=== PATIENT | female | born 1955 | race Caucasian/White ===

== ENCOUNTER 2019-09-29 07:35 | Day surgery (SDC) | payer OTHER ==
--- NOTE | 2019-09-28 11:21 | RAD REPORT ---
EXAM DESCRIPTION: RAD - Chest Pa And Lat (2 Views) - 09/28/2019 11:12 am CLINICAL HISTORY: preop Chest pain. COMPARISON: Chest Pa And Lat (2 Views) dated 01/26/2019; Chest Pa And Lat (2 Views) dated 03/24/2016; C HEST SINGLE VIEW dated 07/25/2012 FINDINGS: The lungs are clear. The heart is upper limit of normal in size. No displaced fractures. IMPRESSION: No acute or concerning finding suspected.
[2019-09-28 12:00] LABS: Absolute Lymphocytes (CBC) 2.7 K/uL (0.7-4.9); Basophils % 0.7 % (0-1.3); Hematocrit 39.7 % (36.0-45.0); Lymphocytes % 31.4 % (15.3-44.8); MPV 10.3 fL (7.6-11.3)
[2019-09-28 12:14] LABS: Protime INR 1.01
[2019-09-28 12:17] LABS: BUN Blood Urea Nitrogen 13 mg/dL (7-18); Bicarbonate 29 mmol/L (21-32); Glucose Level 115 mg/dL (74-106); Potassium 3.9 mmol/L (3.5-5.1); Sodium Level 143 mmol/L (136-145)
--- NOTE | 2019-09-28 14:32 | EKG ---
Test Date: 2019-09-28 Test Time: 11:40:07 Living Manager: ORQUIDEA MEASUREMENT RESULTS: Intervals: Rate: 70 WV: 180 QRSD: 78 QT: 416 QTc: 449 Alligator: P: 54 WV: 180 QRS: 57 T: 51 INTERPRETIVE STATEMENTS: Normal sinus rhythm Nonspecific T wave abnormality Abnormal ECG Compared to ECG 07/25/2012 16:43:27 T-wave abnormality now present Electronically Signed On 09-28-19 14:31:39 EDISCOVERY PROJECT MANAGER by Bhanu Kelley
[2019-09-29] MEDS ORDERED: NA CHLORIDE 0.9% 500 ML ONE (07:41)
[2019-09-29] MEDS ORDERED: HEPA 1000U/500MLS 1,000 UNIT/500 ML BAG IV ONE (08:18)
[2019-09-29] MEDS ORDERED: MIDAZOLAM HCL 2 MG/2 ML INJ ONE ×2 (08:39→09:12)
[2019-09-29] MEDS ORDERED: ATROPINE SULF 1 MG/10 ML SYR IV ONE (08:39)
[2019-09-29] MEDS ORDERED: FENTANYL CITR 100 MCG/2 ML ONE (08:39)
[2019-09-29] MEDS ORDERED: NA CHLORIDE 0.9% 0 ML ONE (08:40)
[2019-09-29] MEDS ORDERED: ONDANSETRON 4 MG/2 ML VIAL ONE (08:47)
[2019-09-29] MEDS ORDERED: METHYLPREDNISOLONE 125 MG INJ ONE (08:47)
[2019-09-29 11:31] VITALS: BP 163/78; TEMP 97.6; O2SAT 94
--- NOTE | 2019-09-29 20:31 | OP ---
Surgeon: Khanh Taylor MD Liturgical Music Director: Ms. Badillo. The patient is 64, has diabetes, dyslipidemia, hypertension, unstable angina. Admitted as an outpati ent for heart catheterization today. Procedures: Left heart catheterization, selective coronary arteriogram, and LV-gram. The patient young d received 2 doses of prednisone 60 mg p.o. the night before and the morning of, and she also receive d 100 mg Solu-Medrol IV prior to the procedure because of iodine allergy. She received Versed and fe ntanyl for IV sedation. Prepped and draped in the routine sterile fashion. Six-Greek access sheath in the right common femoral artery, successful angiogram there was normal. Angio-Seal was used to c lose the case. Antonieta catheters 6-Greek left main and right main injected respectively with a JL4 and JR4 without any complication. She had normal coronaries. She was right dominant. A JR4 was use d to do an LV-gram. She had a normal ejection fraction, end-diastolic pressure and wall motion. The re were no complications. Blood Loss: 5 mL. Total conscious sedation was 30 minutes. Postoperative Diagnosis: Chest pain, normal coronaries. Plan: Medical therapy. RIKKI/LEONOR Voice ID: [id number] Report ID: [id number]
== END 2019-09-29 11:25 | disposition home or self-care (01) ==
LOC: CCL 07:35
DX: R07.9 Chest pain, unspecified (principal); I10 Essential (primary) hypertension; E78.5 Hyperlipidemia, unspecified; E11.9 Type 2 diabetes mellitus without complications; J45.909 Unspecified asthma, uncomplicated; F41.9 Anxiety disorder, unspecified; R60.9 Edema, unspecified; Z91.013 Allergy to seafood; Z88.6 Allergy status to analgesic agent; Z88.3 Allergy status to other anti-infective agents
CPT/HCPCS: 93005; 85025; 80048; 36415; 85610; 82947 ×2; 85730; 71046; 93458; C1893; C1760; J2250 ×2; J3010; J7040; J2930; J0583; J2405

== ENCOUNTER 2023-07-06 12:05 | Emergency (ER) | payer OTHER, SELFPAY ==
--- OUTSIDE RECORDS SUMMARY | 2023-07-06 12:09 | XMS REPORT | Continuity of Care Document ---
:1955 [facility] t Address [address] [place] [address] Care Team Providers Name Role Phone Luis E Puri Attending Clinician Problems Condition Condition Condition Status Onset Resolution Last Treating Co mments Source Name Details Category Date Date Treatment Clinician Date S/P LT S/P LT Diagnosis Active 2016-12-24 Me moria HAND FX HAND FX 14:46:00 l Active [facility] Allergies, Adverse Reactions, Alerts This patient has no known allergies or adverse reactions. Medications This patient has no known medications. Procedures This patient has no known procedures. Encounters Start End Encounter Admission Attending Care Care Encounter Source Date/Time Date/Time Type Type Clinicians Facility Department ID 2023-04-05 2023-04-05 Outpatient [facility] [id number] Addy 07:22:40 07:22:40 [id number] F Zain 2023-03-22 2023-03-22 Outpatient [facility] [id number] Addy 07:31:14 07:31:14 [id number] F Zain 2016-12-24 2017-01-23 OP Therapy nullFlavo [facility] [id number] Memoria 19:24:00 05:59:00 Patients r Navdeep 00 l Roland Chisholm 2016-12-24 2017-01-22 Outpatient [facility], [id number] 13:24:00 23:59:00 Luis E Jane [id number] 5.51 2016-12-24 2017-01-22 Outpatient [facility], [id number] 13:24:00 23:59:00 Luis E Jane [id number] 5.51 Results This patient has no known results.
[2023-07-06 12:50] LABS: Absolute Lymphocytes (CBC) 1.2 K/uL (0.7-4.9); Hematocrit 38.6 % (36.0-45.0); Lymphocytes % 15.2 % (15.3-44.8); MCV 90.2 fL (80-100); MPV 9.2 fL (7.6-11.3); Platelets 135 thou/uL (152-406); RBC Red Blood Cell Count 4.29 M/uL (3.86-4.86)
[2023-07-06 13:10] LABS: Albumin 2.9 g/dL (3.4-5.0); Bilirubin Direct 0.3 mg/dL (0-0.2); Bilirubin Indirect, Calculated 0.7 mg/dL (0.2-0.8); Magnesium 2.1 mg/dL (1.6-2.4); Potassium 3.4 mEq/L (3.5-5.1); Protein, Total 6.7 g/dL (6.4-8.2)
[2023-07-06 13:17] LABS: Troponin High Sensitivity 166.1 pg/mL (<58.9)
--- NOTE | 2023-07-06 13:34 | RAD REPORT ---
EXAM DESCRIPTION: RADChest Single View07/06/2023 1:05 pm CLINICAL HISTORY: DYSPNEA COMPARISON: Chest Pa And Lat (2 Views) dated 09/28/2019; Chest Pa And Lat (2 Views) dated 01/26/2019; C hest Pa And Lat (2 Views) dated 03/24/2016; CHEST SINGLE VIEW dated 07/25/2012 TECHNIQUE: Portable AP view of the chest. FINDINGS: The lungs show no focal consolidation. Central interstitial prominence. Faint left more th an right airspace opacities, could in part relate to superimposition of soft tissues. No pneumothorax or effusion. The cardiomediastinal contours are unremarkable. IMPRESSION: Central interstitial prominence with possible faint bibasilar opacities, findings which may relate to central congestion or early edema.
[2023-07-06] MEDS ORDERED: ASPIRIN 81 MG CHEWABLE TABLET ONE (13:50)
[2023-07-06] MEDS ORDERED: CLOPIDOGREL 75 MG TABLET ONE (13:50)
[2023-07-06] MEDS ORDERED: MORPHINE 2 MG/ML SYR ONE (14:25)
[2023-07-06] MEDS ORDERED: NITROGLYCERIN 1 GM PKT TD ONE (14:25)
[2023-07-06] MEDS ORDERED: DIPHENHYDRAMINE 50 MG/ML VIAL ONE (14:30)
[2023-07-06] MEDS ORDERED: METHYLPREDNISOLONE 125 MG INJ ONE (14:30)
[2023-07-06] MEDS ORDERED: FAMOTIDINE 20 MG/2 ML VIAL IV ONE (14:31)
[2023-07-06] MEDS ORDERED: HEPARIN/D5W 25,000 UNIT/500 ML BAG IV ONE (15:13)
[2023-07-06] MEDS ORDERED: HEPARIN 5000 UNIT/ML 1 ML VIAL ONE (15:13)
--- NOTE | 2023-07-06 15:30 | ER ---
Nurse's Notes [facility] Name: Raven Biggs Age: 68 yrs Sex: Female : 1955 Arrival Date: 07/06/2023 Time: 12:05 Bed 4 Private MD: Diagnosis: Subsequent non-ST elevation (NSTEMI) myocardial infarction Presentation: 07/06 12:06 Chief complaint: Patient's son or daughter states: SOB AND MALAISE x3 DAYS. Coronavirus bp screen: At this time, the client does not indicate any symptoms associated with coronavirus-19. Ebola Screen: No symptoms or risks identified at this time. Initial Sepsis Screen: Does the patient meet any 2 criteria? No. Patient's initial sepsis screen is negative. Does the patient have a suspected source of infection? No. Patient's initial sepsis screen is negative. Risk Assessment: Do you want to hurt yourself or someone else? Patient reports no desire to harm self or others. Onset of symptoms is unknown. Care prior to arrival: IV initiated. 18 GA, in the left antecubital area, Glucose check: 231. 12:06 Method Of Arrival: EMS: [facility] bp 12:06 Acuity: DALE 3 bp Triage Assessment: 12:08 General: Appears uncomfortable, obese, unkempt, Behavior is cooperative, appropriate bp for age, anxious. Pain: Denies pain. EENT: No deficits noted. Neuro: No deficits noted. Cardiovascular: No deficits noted. Respiratory: Reports shortness of breath cough that is Onset: The symptoms/episode began/occurred at an unknown time. the patient has moderate shortness of breath. GI: No signs and/or symptoms were reported involving the gastrointestinal system. : No signs and/or symptoms were reported regarding the genitourinary system. Historical: - Allergies: 12:08 Bactrim; bp 12:08 Codeine; bp 12:08 Fish Containing Products; bp 12:08 Hydrocodone-Acetaminophen; bp 12:08 Iodine; bp 12:08 tramadol; bp - PMHx: 12:08 Diabetes - NIDDM; bp - Immunization history:: Adult Immunizations up to date. - Social history:: Smoking status: Patient denies any tobacco usage or history of. Screenin:11 [facility] ED Fall Risk Assessment (Adult) History of falling in the last 3 months, bp including since admission No falls in past 3 months (0 pts). Abuse screen: Denies threats or abuse. Denies injuries from another. Nutritional screening: No deficits noted. Tuberculosis screening: No symptoms or risk factors identified. Assessment: 12:10 General: SEE TRIAGE NOTE. bp 13:44 Cardiovascular: Rhythm is sinus rhythm. Respiratory: Airway is patent Respiratory bp effort is labored, Breath sounds with wheezes bilaterally. 14:00 Reassessment: AFTER MORPHINE ADMINISTRATION, PT STATES THAT SHE REMEMBERS BEING bp ALLERGIC TO MORPHINE. PT "ALLERGIC REACTION" CONSISTS OF CLENCHING EYES AND NOT SPEAKING, VS REMAIN STABLE AND AIRWAY REMAINS PATENT WITH NO EVIDENCE OF RASH OR EDEMA. NOTIFIED. 15:18 Reassessment: REPORT TO [facility] RN FOR [facility]. 15:34 Reassessment: [facility] AT / FOR TRANSPORT. REPORT TO KANWAL GARCIA AT [facility] bp 6102. Vital Signs: 12:06 BP 152 / 54; Pulse 75; Resp 16; Temp 99; Pulse Ox 82% on R/A; bp 13:44 BP 145 / 58; Pulse 74; Resp 16; Pulse Ox 97% on 2 lpm NC; Weight 102.06 kg; ss 14:38 BP 148 / 72; Pulse 66; Resp 19; Pulse Ox 97% ; jl7 15:34 BP 140 / 70; Pulse 67; Resp 16; Pulse Ox 97% ; bp ED Course: 12:06 Patient arrived in ED. bp 12:08 Triage completed. bp 12:08 Snou Steel MD is Attending Physician. kdr 12:08 Arm band placed on. bp 12:11 Patient has correct armband on for positive identification. Bed in low position. Call bp light in reach. Side rails up X2. 12:11 Maintain EMS IV. Dressing intact. Good blood return noted. Gauge \\T\\ site: 18 GA LEFT AC. bp 12:39 Darell Varner, JOSE is Primary Nurse. bp 13:07 XRAY Chest (1 view) In Process Unspecified. EDMS 13:14 EKG done, by ED staff, reviewed by Sonu Steel MD. jl7 13:30 Notified ED physician of a critical lab result(s). Troponin 166.1. eh3 15:34 No provider procedures requiring assistance completed. Patient transferred, IV remains bp in place. Administered Medications: 13:43 Drug: Aspirin PO Chewable Tablet 324 mg Route: PO; bp 15:29 Follow up: Response: No adverse reaction bp 13:43 Drug: Clopidogrel PO 300 mg Route: PO; bp 15:29 Follow up: Response: No adverse reaction bp 14:00 Drug: Nitroglycerin Transdermal Ointment 2 % 1 inches Route: Transdermal; Site: bp anterior chest wall; 14:00 Drug: morphine IVP or IV 2 mg Route: IVP; Infused Over: 4 mins; Site: left antecubital; bp 15:29 Follow up: Response: No adverse reaction bp 14:15 Drug: MethylPrednisoLONE IVP 125 mg Route: IVP; Site: left antecubital; bp 15:29 Follow up: Response: No adverse reaction bp 14:15 Drug: Famotidine IVP 20 mg Route: IVP; Site: left antecubital; bp 15:30 Follow up: Response: No adverse reaction bp 14:15 Drug: diphenhydrAMINE IVP 25 mg Route: IVP; Site: left antecubital; bp 15:30 Follow up: Response: No adverse reaction bp 15:02 Drug: Heparin (MD-Bolus No thrombolytic) - HEParin IVP 60 units/kg {Co-Signature: jl7 bp (Donald Vega RN).} Route: IVP; Site: left antecubital; 15:40 Follow up: Response: No adverse reaction bp 15:02 Drug: Heparin (MD Drip) - (D5W IV 500 ml, [place] [address] units) 12 units/kg/hr bp {Co-Signature: jl7 (Donald Vega RN).} Route: IV; Rate: calculated rate; Site: left antecubital; 15:40 Follow up: IV Status: Infusion continued upon transfer bp Outcome: 15:29 ER care complete, transfer ordered by . kdr 15:35 Transferred by helicopter to [facility], Transfer form completed. bp 15:35 Condition: stable 15:35 Instructed on the need for transfer. 15:40 Patient left the ED. bp Signatures: Dispatcher [employer] EDMS Sonu Steel MD MD kdr Blanchard, Shelby, RN RN Donald Vega RN RN jl7 Darell Varner RN RN bp Chuyita Dash RN RN 3 Donald Vega RN jl7 Corrections: (The following items were deleted from the chart) 15:01 13:44 BP 145 / 58; Pulse 74bpm; Resp 16bpm; Pulse Ox 97% 2 lpm Nasal Cannula; bp ss
--- NOTE | 2023-07-06 15:30 | EDPHYS ---
Physician Documentation [facility] Name: Raven Biggs Age: 68 yrs Sex: Female : 1955 Arrival Date: 07/06/2023 Time: 12:05 Bed 4 Private MD: ED Physician Sonu Steel HPI: 07/06 16:55 This 68 yrs old Female presents to ER via EMS with complaints of Shortness Of Breath. kdr 16:55 Patient states that she has been short of breath and having chest pressure and kdr heaviness for the last 3 days. The discomfort has steadily progressed. She states that her pain on admission was 9-1/2 out of 10. The patient appears mildly dyspneic but is otherwise not in any acute distress. She is conversing appropriately and without evidence of restriction due to her dyspnea. Patient is certainly appears ill but is not toxic appearing at initial presentation. Onset: The symptoms/episode began/occurred gradually, 3 day(s) ago. Severity of symptoms: At their worst the symptoms were moderate severe incapacitating just prior to arrival, in the emergency department the symptoms have improved mildly. Severity of symptoms: in the emergency department the symptoms After initial round of interventions, the patient stated she was feeling better. She rated her discomfort at a 5 out of 10.. The patient has not experienced similar symptoms in the past. The patient has not recently seen a physician. Historical: - Allergies: 12:08 Bactrim; bp 12:08 Codeine; bp 12:08 Fish Containing Products; bp 12:08 Hydrocodone-Acetaminophen; bp 12:08 Iodine; bp 12:08 tramadol; bp - PMHx: 12:08 Diabetes - NIDDM; bp - Immunization history:: Adult Immunizations up to date. - Social history:: Smoking status: Patient denies any tobacco usage or history of. ROS: 16:55 Constitutional: Negative for fever, chills, and weight loss, Eyes: Negative for injury, kdr pain, redness, and discharge, ENT: Negative for injury, pain, and discharge, Neck: Negative for injury, pain, and swelling, Abdomen/GI: Negative for abdominal pain, nausea, vomiting, diarrhea, and constipation, Back: Negative for injury and pain, : Negative for injury, bleeding, discharge, and swelling, MS/Extremity: Negative for injury and deformity, Skin: Negative for injury, rash, and discoloration, Neuro: Negative for headache, weakness, numbness, tingling, and seizure activity. Psych: Negative for depression, anxiety, suicide ideation, homicidal ideation, and hallucinations, Allergy/Immunology: Negative for hives, rash, and allergies, Endocrine: Negative for neck swelling, polydipsia, polyuria, polyphagia, and marked weight changes, Hematologic/Lymphatic: Negative for swollen nodes, abnormal bleeding, and unusual bruising. 16:55 Cardiovascular: Positive for palpitations, Negative for edema, orthopnea, palpitations, paroxysmal nocturnal dyspnea. 16:55 Respiratory: Positive for dyspnea on exertion, shortness of breath, at rest. Negative for cough, hemoptysis, orthopnea, pleurisy, wheezing. Exam: 16:55 Constitutional: This is a well developed, well nourished patient who is awake, alert, kdr and in no acute distress. Head/Face: Normocephalic, atraumatic. Eyes: Pupils equal round and reactive to light, extra-ocular motions intact. Lids and lashes normal. Conjunctiva and sclera are non-icteric and not injected. Cornea within normal limits. Periorbital areas with no swelling, redness, or edema. Neck: Trachea midline, no thyromegaly or masses palpated, and no cervical lymphadenopathy. Supple, full range of motion without nuchal rigidity, or vertebral point tenderness. No Meningismus. Chest/axilla: Normal chest wall appearance and motion. Nontender with no deformity. No lesions are appreciated. Cardiovascular: Regular rate and rhythm with a normal S1 and S2. No gallops, murmurs, or rubs. Normal PMI, no JVD. No pulse deficits. Respiratory: Lungs have equal breath sounds bilaterally, clear to auscultation and percussion. No rales, rhonchi or wheezes noted. No increased work of breathing, no retractions or nasal flaring. Abdomen/GI: Soft, non-tender, with normal bowel sounds. No distension or tympany. No guarding or rebound. No evidence of tenderness throughout. Back: No spinal tenderness. No costovertebral tenderness. Full range of motion. Skin: Warm, dry with normal turgor. Normal color with no rashes, no lesions, and no evidence of cellulitis. MS/ Extremity: Pulses equal, no cyanosis. Neurovascular intact. Full, normal range of motion. Neuro: Awake and alert, GCS 15, oriented to person, place, time, and situation. Cranial nerves II-XII grossly intact. Motor strength 5/5 in all extremities. Sensory grossly intact. Cerebellar exam normal. Normal gait. Psych: Awake, alert, with orientation to person, place and time. Behavior, mood, and affect are within normal limits. 16:55 Abdomen/GI: Inspection: obese Vital Signs: 12:06 BP 152 / 54; Pulse 75; Resp 16; Temp 99; Pulse Ox 82% on R/A; bp 13:44 BP 145 / 58; Pulse 74; Resp 16; Pulse Ox 97% on 2 lpm NC; Weight 102.06 kg; ss 14:38 BP 148 / 72; Pulse 66; Resp 19; Pulse Ox 97% ; jl7 15:34 BP 140 / 70; Pulse 67; Resp 16; Pulse Ox 97% ; bp MDM: 14:46 ED course: I discussed with Dr. Braun and given the patient's continued shortness of kdr breath, will transfer the patient emergently to higher level of care for possible emergent intervention.. 15:29 Patient medically screened. kdr 16:58 Data reviewed: vital signs, nurses notes, lab test result(s). [facility] 07/06 12:23 Order name: Basic Metabolic Panel; Complete Time: 13:30 [facility] 07/06 12:23 Order name: CBC with Diff; Complete Time: 13:30 [facility] 07/06 12:23 Order name: LFT's; Complete Time: 13:30 [facility] 07/06 12:23 Order name: Magnesium; Complete Time: 13:30 [facility] 07/06 12:23 Order name: NT PRO-BNP; Complete Time: 13:30 [facility] 07/06 12:23 Order name: Troponin HS; Complete Time: 13:30 [facility] 08 12:23 Order name: XRAY Chest (1 view); Complete Time: 13:39 [facility] 07/06 12:23 Order name: EKG; Complete Time: 12:24 kdr 07/06 12:23 Order name: Cardiac monitoring; Complete Time: 12:39 [facility] 07/06 12:23 Order name: EKG - Nurse/Tech; Complete Time: 13:13 [facility] 07/06 12:23 Order name: IV Saline Lock; Complete Time: 12:39 kdr 07/06 12:23 Order name: Labs collected and sent; Complete Time: 12:39 kdr 07/06 12:23 Order name: O2 Per Protocol; Complete Time: 12:39 kdr 07/06 12:23 Order name: O2 Sat Monitoring; Complete Time: 12:39 kdr Administered Medications: 13:43 Drug: Aspirin PO Chewable Tablet 324 mg Route: PO; bp 15:29 Follow up: Response: No adverse reaction bp 13:43 Drug: Clopidogrel PO 300 mg Route: PO; bp 15:29 Follow up: Response: No adverse reaction bp 14:00 Drug: Nitroglycerin Transdermal Ointment 2 % 1 inches Route: Transdermal; Site: bp anterior chest wall; 14:00 Drug: morphine IVP or IV 2 mg Route: IVP; Infused Over: 4 mins; Site: left antecubital; bp 15:29 Follow up: Response: No adverse reaction bp 14:15 Drug: MethylPrednisoLONE IVP 125 mg Route: IVP; Site: left antecubital; bp 15:29 Follow up: Response: No adverse reaction bp 14:15 Drug: Famotidine IVP 20 mg Route: IVP; Site: left antecubital; bp 15:30 Follow up: Response: No adverse reaction bp 14:15 Drug: diphenhydrAMINE IVP 25 mg Route: IVP; Site: left antecubital; bp 15:30 Follow up: Response: No adverse reaction bp 15:02 Drug: Heparin (AZ-Bolus No thrombolytic) - HEParin IVP 60 units/kg {Co-Signature: jl7 bp (Donald Vega RN).} Route: IVP; Site: left antecubital; 15:40 Follow up: Response: No adverse reaction bp 15:02 Drug: Heparin ([place] Drip) - (D5W IV 500 ml, [place] [address] units) 12 units/kg/hr bp {Co-Signature: jl7 (Donald Vega RN).} Route: IV; Rate: calculated rate; Site: left antecubital; 15:40 Follow up: IV Status: Infusion continued upon transfer bp Disposition Summary: 07/06/23 15:29 Transfer Ordered Transfer Location: [facility] kdr Reason: Higher level of care kdr Condition: Serious kdr Problem: new kdr Symptoms: have improved kdr Accepting Physician: Dr. Whitney(07/06/23 15:40) bp Diagnosis - Subsequent non-ST elevation (NSTEMI) myocardial infarction kdr Forms: - Medication Reconciliation Form kdr - SBAR form kdr Signatures: Dispatcher [employer] EDSonu Quinones MD MD kdr Darell Varner, RN RN bp Donald Vega RN jl7 Corrections: (The following items were deleted from the chart) 15:40 15:29 Dr. Whitney kdr bp
[2023-07-06 15:49] VITALS: TEMP 99
[2023-07-06 15:50] VITALS: O2SAT 97
[2023-07-06 15:53] VITALS: BP 140/70
--- NOTE | 2023-07-07 15:28 | EKG ---
Test Date: 2023-07-06 Test Time: 13:05:52 Electric Detector Operator: DAMON MEASUREMENT RESULTS: Intervals: Rate: 69 [place]: 154 QRSD: 82 QT: 428 QTc: 458 [place]: P: 78 [place]: 154 QRS: -27 T: 68 INTERPRETIVE STATEMENTS: Normal sinus rhythm T wave abnormality, consider lateral ischemia Abnormal ECG Compared to ECG 09/28/2019 11:40:07 Possible ischemia now present T-wave abnormality still present Electronically Signed On 07-07-23 15:28:11 CDT by Martin Braun
--- NOTE | 2023-07-08 13:13 | EKG ---
Test Date: 2023-07-06 Test Time: 15:24:33 Manager Heavy Equipment: BP MEASUREMENT RESULTS: Intervals: Rate: 68 MD: 132 QRSD: 88 QT: 420 QTc: 446 [place]: P: -24 MD: 132 QRS: -24 T: 67 INTERPRETIVE STATEMENTS: Normal sinus rhythm Cannot rule out Anterior infarct, age undetermined Abnormal ECG Compared to ECG 07/06/2023 13:05:52 Myocardial infarct finding now present T-wave abnormality no longer present Possible ischemia no longer present Electronically Signed On 07-08-23 13:10:24 CDT by Martin Braun
== END 2023-07-06 15:40 | disposition short-term general hospital (02) ==
LOC: ER 12:05
DX: I22.2 Subsequent non-ST elevation (NSTEMI) myocardial infarction (principal); I21.9 Acute myocardial infarction, unspecified; E11.9 Type 2 diabetes mellitus without complications; Z88.1 Allergy status to other antibiotic agents; Z88.5 Allergy status to narcotic agent; Z91.013 Allergy to seafood; Z91.048 Other nonmedicinal substance allergy status
CPT/HCPCS: 36415; 71045; 80048; 80076; 83735; 83880; 84484; 85025; 93005; 96365; 96375; 99285; J1200; J1644; J2270; J2930